=== PATIENT | male | born 1975 | race African-American/Black ===

== ENCOUNTER 2020-10-30 15:11 | Emergency (ER) | payer SELFPAY ==
[2020-10-30] MEDS ORDERED: Dexamethasone 10 MG/ML VIAL ONE (17:18)
[2020-10-30] MEDS ORDERED: Metoclopramide HCl 10 MG/2 ML VIAL ONE (17:19)
[2020-10-30] MEDS ORDERED: diphenhydrAMINE 50 MG/ML VIAL ONE (17:19)
[2020-10-30 18:21] LABS: #Basophils 0.1 10x3/uL (0.0-0.2); #Eosinphils 0.1 10x3/uL (0.0-0.5); #Monocytes 0.7 10x3/uL (0.0-1.1); #Neutrophils 4.7 10x3/uL (1.5-8.4); %Basophils 0.6 % (0.0-2.0); %Eosinophils 1.1 % (0.0-6.0); %Lymphocytes 35.8 % (18.0-47.0); %Monocytes 8.5 % (0.0-10.0); %Neutrophils 53.7 % (40.0-75.0); Hemoglobin 12.7 g/dL (13.5-17.5); Mean Corpuscular HGB CONC 31.4 g/dL (32.0-36.0); Mean Corpuscular Hemoglobin 22.5 pg (27.0-33.0); Mean Corpuscular Volume 71.8 fl (81.2-95.1); Mean Platelet Volume 10.8 fl (7.4-10.4); Platelet Count 344 10x3/uL (150-450); RBC Distribution Width 17.4 % (11.5-14.5); Red Blood Cell (RBC) Count 5.64 10x6/uL (4.32-5.72); White Blood Cell (WBC) Count 8.7 10x3/uL (3.5-10.5)
[2020-10-30 18:34] LABS: PTT 26.2 sec (22.0-33.0); Prothrombin Time 11.4 sec (9.5-12.1)
[2020-10-30 18:35] LABS: ALT (SGPT) 36 U/L (8-55); AST (SGOT) 24 U/L (5-34); Albumin 4.2 g/dL (3.5-5.0); Alkaline Phosphatase 64 U/L (40-110); Anion Gap 14 mmol/L (10-20); BUN (Urea Nitrogen) 10 mg/dL (8.9-20.6); Bilirubin, Total 0.4 mg/dL (0.2-1.2); Calc. Creatinine Clearance 0 mL/min (70-130); Calcium 9.2 mg/dL (7.8-10.44); Carbon Dioxide 28 mmol/L (22-29); Chloride 100 mmol/L (98-107); Glucose 100 mg/dL (70-105); Potassium 4.1 mmol/L (3.5-5.1); Protein, Total 8.2 g/dL (6.0-8.3); Sodium 138 mmol/L (136-145)
== END 2020-10-30 18:54 | disposition short-term general hospital (02) ==
LOC: CSHERS 15:11
DX: G93.89 Other specified disorders of brain (principal); F17.290 Nicotine dependence, other tobacco product, uncomplicated
CPT/HCPCS: 70450; 80053; 84484; 85025; 85610; 85730; 93005; 96365; 96375; J1100; J1200; J2765